=== PATIENT | female | born 1935 | race Asian ===

== ENCOUNTER 2016-07-10 14:15 | Outpatient (CLI) | payer OTHER ==
[~2016-07-10 14:15] MED LIST: ADULT ASA81 MG OR; APRODINE1 TAB OR; BYSTOLIC5 MG PO; CLOPIDOGREL75 MG PO; FA-8800 MCG OR; FURO40TA93 PO; GABA100C2 PO; GLIP10TA55 PO; HYDR25TA60 PO; INSU100I2 SC; METHO2.5 PO; MICRO-K10 MEQ OR; NITROGLYCER0.4 MG/HR SL; VYTORIN1 TA1 PO
== END 2016-07-10 19:55 | disposition home or self-care (01) ==
LOC: RAD 14:15
DX: M85.89 Other specified disorders of bone density and structure, multiple sites (principal)

== ENCOUNTER 2016-09-23 16:43 | Outpatient (CLI) | payer OTHER ==
[2016-09-23 17:15] LABS: POTASSIUM 4.2 mmol/L (3.6-5.2)
== END 2016-09-23 19:21 | disposition home or self-care (01) ==
LOC: LABW 16:43
PROVIDERS: Nurse Practitioner
DX: E11.9 Type 2 diabetes mellitus without complications (principal); N28.89 Other specified disorders of kidney and ureter
CPT/HCPCS: 36415; 80053; 82043; 82570; 83036

== ENCOUNTER 2016-10-09 17:17 | Outpatient (CLI) | payer OTHER ==
[2016-10-09 18:01] LABS: POTASSIUM 4.4 mmol/L (3.6-5.2)
== END 2016-10-09 20:28 | disposition home or self-care (01) ==
LOC: LABW 17:17
PROVIDERS: Internal Medicine Cardiovascular Disease
DX: I50.9 Heart failure, unspecified (principal)
CPT/HCPCS: 36415; 80048; 83880

== ENCOUNTER 2016-10-15 09:17 | Outpatient (CLI) | payer OTHER | END 2016-10-15 19:33 | disposition home or self-care (01) | LOC: US 09:17 | DX: E78.4 Other hyperlipidemia (principal); I10 Essential (primary) hypertension ==

== ENCOUNTER 2016-10-28 18:43 | Inpatient (IN) | payer OTHER ==
[~2016-10-28] VITALS: Ht 157.5 cm; Wt 79.0 kg
[2016-10-28 18:50] VITALS: BP 161/77; TEMP 99.4
[2016-10-28 21:41] LABS: PLATELET COUNT 155 K/uL (152-353)
[2016-10-29 02:42] VITALS: BP 172/82; TEMP 99.7; Ht 157.5 cm; Wt 79.0 kg
[2016-10-29] MEDS ORDERED: TRAM50TA PO (03:19)
[2016-10-29] MEDS ORDERED: MINOCYCLINE50 MG OR (03:20)
[2016-10-29] MEDS ORDERED: ALLO100T22 PO (03:21)
[2016-10-29] MEDS ORDERED: TIZA4TAB5 PO (03:22)
[2016-10-29] MEDS ORDERED: COLCHICINE0.6 MG PO (03:23)
[2016-10-29] MEDS ORDERED: SIMV40TA57 (03:25)
[2016-10-29 04:00] VITALS: BP 151/79; TEMP 99.6
[2016-10-29 08:00] VITALS: BP 136/67; TEMP 97.9
[2016-10-29 12:00] VITALS: BP 129/67; TEMP 98.6
[2016-10-29 16:00] VITALS: BP 154/76; TEMP 97.9
[2016-10-29 19:51] VITALS: BP 145/70; TEMP 100.1
[2016-10-30] VITALS: BP 113/61; TEMP 100
[2016-10-30 04:00] VITALS: BP 139/69; TEMP 99.5
[2016-10-30 05:11] LABS: POTASSIUM 3.8 mmol/L (3.6-5.2); SODIUM 133 mmol/L (136-145)
[2016-10-30 05:14] LABS: PLATELET COUNT 151 K/uL (152-353)
[2016-10-30 07:59] VITALS: BP 129/76; TEMP 99.4
[2016-10-30 12:26] VITALS: BP 124/63; TEMP 99.4
[2016-10-30 16:09] VITALS: BP 136/80; TEMP 99.5
[2016-10-30 20:00] VITALS: BP 138/67; TEMP 99.5
[2016-10-31 00:02] VITALS: BP 131/64; TEMP 99.5
[2016-10-31 04:00] VITALS: BP 143/71; TEMP 99.1
[2016-10-31 06:26] LABS: PLATELET COUNT 148 K/uL (152-353)
[2016-10-31 06:41] LABS: POTASSIUM 3.5 mmol/L (3.6-5.2); SODIUM 133 mmol/L (136-145)
[2016-10-31 08:15] VITALS: BP 146/75; TEMP 98.9
[2016-10-31 12:00] VITALS: BP 134/77; TEMP 99.4
[2016-10-31 16:00] VITALS: BP 168/84; TEMP 99.2
[2016-10-31 19:50] VITALS: BP 148/77; TEMP 98.8
[2016-11-01] VITALS (7 sets, daily range): BP systolic 126–164; BP diastolic 68–90; TEMP 98.5–100.5
[2016-11-01 05:43] LABS: PLATELET COUNT 154 K/uL (152-353)
[2016-11-01 05:50] LABS: POTASSIUM 3.4 mmol/L (3.6-5.2); SODIUM 132 mmol/L (136-145)
[2016-11-02 04:00] VITALS: BP 153/81; TEMP 99.8
[2016-11-02 05:33] LABS: PLATELET COUNT 176 K/uL (152-353)
[2016-11-02 05:37] LABS: POTASSIUM 3.9 mmol/L (3.6-5.2); SODIUM 132 mmol/L (136-145)
[2016-11-02 08:00] VITALS: BP 149/83; TEMP 99.3
[2016-11-02 11:35] VITALS: BP 155/86; TEMP 98.8
[2016-11-02 16:00] VITALS: BP 185/86; TEMP 99
[2016-11-02 20:12] VITALS: BP 127/64; TEMP 99.8
[2016-11-03 00:21] VITALS: BP 140/66; TEMP 100
[2016-11-03 04:00] VITALS: BP 139/77; TEMP 99
[2016-11-03 05:00] LABS: PLATELET COUNT 189 K/uL (152-353)
[2016-11-03 05:11] LABS: POTASSIUM 3.7 mmol/L (3.6-5.2); SODIUM 133 mmol/L (136-145)
[2016-11-03 08:00] VITALS: BP 146/71; TEMP 97.8
[2016-11-03 12:00] VITALS: BP 158/86; TEMP 99.2
[2016-11-03 16:00] VITALS: BP 172/94; TEMP 99
[2016-11-03 20:25] VITALS: BP 174/91; TEMP 99
[2016-11-04] VITALS: BP 164/89; TEMP 98
[2016-11-04 04:00] VITALS: BP 132/79; TEMP 97.8
[2016-11-04 08:00] VITALS: BP 147/81; TEMP 97.8
[2016-11-04 11:51] LABS: POTASSIUM 4.2 mmol/L (3.6-5.2); SODIUM 132 mmol/L (136-145)
[2016-11-04 12:00] VITALS: BP 156/86; TEMP 97.9
[2016-11-04 12:19] LABS: PLATELET COUNT 213 K/uL (152-353)
[2016-11-04 16:00] VITALS: BP 140/71; TEMP 98.9
[2016-11-04 20:00] VITALS: BP 148/82; TEMP 98.2
[2016-11-05 00:16] VITALS: BP 164/87; TEMP 98.4
[2016-11-05 04:00] VITALS: BP 151/80; TEMP 98.8
[2016-11-05 05:48] LABS: POTASSIUM 4.4 mmol/L (3.6-5.2)
[2016-11-05 05:50] LABS: PLATELET COUNT 238 K/uL (152-353)
[2016-11-05 08:02] VITALS: BP 176/85; TEMP 97.6
[2016-11-05 12:00] VITALS: BP 170/102; TEMP 97.6
[2016-11-05 16:00] VITALS: BP 160/79; TEMP 97.9
[2016-11-05 20:24] VITALS: BP 170/87; TEMP 99
[2016-11-06] VITALS: BP 138/75; TEMP 97.7
[2016-11-06 04:00] VITALS: BP 152/92; TEMP 98.9
[2016-11-06 05:20] LABS: PLATELET COUNT 274 K/uL (152-353)
[2016-11-06 08:20] VITALS: BP 157/76; TEMP 98
[2016-11-06 12:00] VITALS: BP 156/80; TEMP 97.6
[2016-11-06 16:00] VITALS: BP 156/80; TEMP 97.6
== END 2016-11-06 18:05 | disposition home or self-care (01) | DRG 640 ==
LOC: ED 18:43 → MED/SURG 10-29 00:39
PROVIDERS: Emergency Medicine; ADMIT Specialist
DX: E86.0 Dehydration (principal); J18.8 Other pneumonia, unspecified organism; B37.0 Candidal stomatitis; J02.0 Streptococcal pharyngitis; E11.9 Type 2 diabetes mellitus without complications; Z79.4 Long term (current) use of insulin; R79.89 Other specified abnormal findings of blood chemistry; R59.1 Generalized enlarged lymph nodes; M17.9 Osteoarthritis of knee, unspecified; M19.042 Primary osteoarthritis, left hand; I10 Essential (primary) hypertension; I50.9 Heart failure, unspecified
CPT/HCPCS: 36415; 36600; 80048; 80053; 81000; 82550; 82553; 82805; 82947; 82948; 83735; 83880; 84100; 84484; 84550; 85027; 85379; 85651; 86430; 87804; 87880; 93005; 94640; 94664; 94760; 96360; 96361; 96365; 96367; 96372; 96375; 99284; J1644; J1720; J1940; J2920; J3411; J3475; J3490; Q9963

== ENCOUNTER 2017-01-26 10:26 | Outpatient (CLI) | payer OTHER ==
[~2017-01-26 10:26] MED LIST changes: +ALLO100T22 PO; +COLCHICINE0.6 MG PO; +MINOCYCLINE50 MG OR; +SIMV40TA57; +TIZA4TAB5 PO; +TRAM50TA PO
== END 2017-01-26 19:07 | disposition home or self-care (01) ==
LOC: RAD 10:26
DX: M85.89 Other specified disorders of bone density and structure, multiple sites (principal); M81.0 Age-related osteoporosis without current pathological fracture

== ENCOUNTER 2017-02-21 20:45 | Outpatient (CLI) | payer OTHER ==
[2017-02-21 21:09] LABS: PLATELET COUNT 172 K/uL (152-353)
[2017-02-21 21:16] LABS: POTASSIUM 4.2 mmol/L (3.6-5.2)
== END 2017-02-21 21:45 | disposition home or self-care (01) ==
LOC: LABW 20:45
PROVIDERS: Internal Medicine Nephrology
DX: I12.9 Hypertensive chronic kidney disease with stage 1 through stage 4 chronic kidney disease, or unspecified chronic kidney disease (principal); N18.3 Chronic kidney disease, stage 3 (moderate); E11.65 Type 2 diabetes mellitus with hyperglycemia
CPT/HCPCS: 80048; 82043; 82570; 84155; 85027

== ENCOUNTER 2017-04-30 07:44 | Outpatient (CLI) | payer OTHER | END 2017-04-30 08:45 | disposition home or self-care (01) | LOC: RAD 07:44 | DX: M06.09 Rheumatoid arthritis without rheumatoid factor, multiple sites (principal); M17.0 Bilateral primary osteoarthritis of knee; M25.512 Pain in left shoulder ==

== ENCOUNTER 2017-05-21 20:03 | Outpatient (CLI) | payer OTHER ==
[2017-05-21 21:09] LABS: PLATELET COUNT 168 K/uL (152-353)
[2017-05-21 21:15] LABS: POTASSIUM 4.5 mmol/L (3.6-5.2)
== END 2017-05-21 21:05 | disposition home or self-care (01) ==
LOC: LABW 20:03
PROVIDERS: Internal Medicine Nephrology
DX: I12.9 Hypertensive chronic kidney disease with stage 1 through stage 4 chronic kidney disease, or unspecified chronic kidney disease (principal); N18.3 Chronic kidney disease, stage 3 (moderate)
CPT/HCPCS: 36415; 80048; 82570; 84155; 85027

== ENCOUNTER 2017-09-16 16:33 | Outpatient (CLI) | payer OTHER ==
[2017-09-16 16:57] LABS: PLATELET COUNT 188 K/uL (152-353)
[2017-09-16 17:18] LABS: POTASSIUM 4.4 mmol/L (3.6-5.2)
== END 2017-09-16 22:59 | disposition home or self-care (01) ==
LOC: LABW 16:33
PROVIDERS: Internal Medicine Nephrology
DX: I12.9 Hypertensive chronic kidney disease with stage 1 through stage 4 chronic kidney disease, or unspecified chronic kidney disease (principal); N18.3 Chronic kidney disease, stage 3 (moderate)
CPT/HCPCS: 36415; 80053; 80061; 82570; 84155; 85027

== ENCOUNTER 2017-10-24 19:41 | Outpatient (CLI) | payer OTHER | END 2017-10-24 21:22 | disposition home or self-care (01) | LOC: LAB 19:41 | DX: D47.2 Monoclonal gammopathy (principal) ==

== ENCOUNTER 2017-10-25 08:15 | Outpatient (CLI) | payer OTHER | END 2017-10-25 20:42 | disposition home or self-care (01) | LOC: RAD 08:15 | DX: D47.2 Monoclonal gammopathy (principal) ==

== ENCOUNTER 2018-01-16 15:14 | Outpatient (CLI) | payer OTHER | END 2018-01-16 19:43 | disposition home or self-care (01) | LOC: LABW 15:14 | DX: M06.09 Rheumatoid arthritis without rheumatoid factor, multiple sites (principal); R70.0 Elevated erythrocyte sedimentation rate; Z79.899 Other long term (current) drug therapy; Z51.81 Encounter for therapeutic drug level monitoring | CPT/HCPCS: 36415; 82784; 82785; 83883; 84155; 84156; 86039; 86235; 86335 ==

== ENCOUNTER 2018-03-16 17:40 | Outpatient (CLI) | payer OTHER ==
[2018-03-16 18:01] LABS: PLATELET COUNT 175 K/uL (152-353)
[2018-03-16 18:10] LABS: POTASSIUM 4.9 mmol/L (3.6-5.2)
== END 2018-03-16 19:46 | disposition home or self-care (01) ==
LOC: LABW 17:40
PROVIDERS: Internal Medicine Nephrology
DX: N18.3 Chronic kidney disease, stage 3 (moderate) (principal); I10 Essential (primary) hypertension; E11.65 Type 2 diabetes mellitus with hyperglycemia
CPT/HCPCS: 36415; 80053; 82570; 84155; 85027

== ENCOUNTER 2018-04-12 10:12 | Outpatient (CLI) | payer OTHER | END 2018-04-12 22:41 | disposition home or self-care (01) | LOC: MAMMO 10:12 | DX: Z12.31 Encounter for screening mammogram for malignant neoplasm of breast (principal) ==

== ENCOUNTER 2018-05-04 14:56 | Outpatient (CLI) | payer OTHER | END 2018-05-04 20:35 | disposition home or self-care (01) | LOC: RAD 14:56 | DX: Z00.00 Encounter for general adult medical examination without abnormal findings (principal); Z78.0 Asymptomatic menopausal state ==

== ENCOUNTER 2018-08-16 14:01 | Outpatient (CLI) | payer OTHER | END 2018-08-16 23:18 | disposition home or self-care (01) | LOC: LABW 14:01 → RAD 14:01 → LABW 23:18 | DX: M06.09 Rheumatoid arthritis without rheumatoid factor, multiple sites (principal) ==

== ENCOUNTER 2018-08-18 15:39 | Outpatient (CLI) | payer OTHER ==
[2018-08-18 16:05] LABS: PLATELET COUNT 166 K/uL (152-353)
[2018-08-18 16:22] LABS: POTASSIUM 4.7 mmol/L (3.6-5.2)
== END 2018-08-18 20:42 | disposition home or self-care (01) ==
LOC: LABW 15:39
PROVIDERS: Nurse Practitioner Family
DX: M06.09 Rheumatoid arthritis without rheumatoid factor, multiple sites (principal); M1A.9XX1 Chronic gout, unspecified, with tophus (tophi); M54.5 Low back pain; M79.7 Fibromyalgia; Z79.899 Other long term (current) drug therapy
CPT/HCPCS: 36415; 80053; 82784; 83883; 84165; 84550; 85027; 85651; 86140

== ENCOUNTER 2018-10-13 07:38 | Outpatient (CLI) | payer OTHER ==
[2018-10-13 08:17] LABS: POTASSIUM 4.4 mmol/L (3.6-5.2)
[2018-10-13 08:32] LABS: PLATELET COUNT 204 K/uL (152-353)
== END 2018-10-13 20:27 | disposition home or self-care (01) ==
LOC: LABW 07:38
PROVIDERS: Internal Medicine Nephrology
DX: I12.9 Hypertensive chronic kidney disease with stage 1 through stage 4 chronic kidney disease, or unspecified chronic kidney disease (principal); N18.3 Chronic kidney disease, stage 3 (moderate); E78.00 Pure hypercholesterolemia, unspecified; E11.65 Type 2 diabetes mellitus with hyperglycemia
CPT/HCPCS: 36415; 80053; 80061; 82570; 84155; 85027

== ENCOUNTER 2018-12-11 12:53 | Outpatient (CLI) | payer OTHER | END 2018-12-11 18:45 | disposition home or self-care (01) | LOC: RAD 12:53 | DX: M06.09 Rheumatoid arthritis without rheumatoid factor, multiple sites (principal) ==

== ENCOUNTER 2018-12-11 20:15 | Emergency (ER) | payer OTHER ==
[~2018-12-11] VITALS: Ht 157.5 cm; Wt 80.3 kg
[2018-12-12 00:29] VITALS: BP 165/80; TEMP 98.4
== END 2018-12-12 00:33 | disposition home or self-care (01) ==
LOC: ED 20:15
DX: M06.80 Other specified rheumatoid arthritis, unspecified site (principal); N39.0 Urinary tract infection, site not specified; M51.36 Other intervertebral disc degeneration, lumbar region; W18.39XA Other fall on same level, initial encounter; Y92.098 Other place in other non-institutional residence as the place of occurrence of the external cause
CPT/HCPCS: 81000; 87077; 87086; 87088; 87186; 99283

== ENCOUNTER 2019-02-23 08:36 | Outpatient (CLI) | payer OTHER ==
[2019-02-23 09:38] LABS: PLATELET COUNT 190 K/uL (152-353)
== END 2019-02-23 22:33 | disposition home or self-care (01) ==
LOC: LABW 08:36
PROVIDERS: Internal Medicine Nephrology
DX: I12.9 Hypertensive chronic kidney disease with stage 1 through stage 4 chronic kidney disease, or unspecified chronic kidney disease (principal); N18.3 Chronic kidney disease, stage 3 (moderate); E78.00 Pure hypercholesterolemia, unspecified; E11.65 Type 2 diabetes mellitus with hyperglycemia; N39.0 Urinary tract infection, site not specified
CPT/HCPCS: 36415; 80053; 82570; 84100; 84155; 85027

== ENCOUNTER 2019-03-02 14:36 | Outpatient (CLI) | payer OTHER | END 2019-03-02 23:26 | disposition home or self-care (01) | LOC: LAB 14:36 | DX: E11.22 Type 2 diabetes mellitus with diabetic chronic kidney disease (principal); N30.01 Acute cystitis with hematuria | CPT/HCPCS: 81000; 87088 ==

== ENCOUNTER 2019-04-14 10:37 | Outpatient (CLI) | payer OTHER | END 2019-04-14 21:29 | disposition home or self-care (01) | LOC: MAMMO 10:37 | DX: Z12.31 Encounter for screening mammogram for malignant neoplasm of breast (principal) ==

== ENCOUNTER 2019-06-05 14:39 | Outpatient (CLI) | payer OTHER ==
[2019-06-05 15:27] LABS: PLATELET COUNT 178 K/uL (152-353)
== END 2019-06-05 19:05 | disposition home or self-care (01) ==
LOC: LAB 14:39
PROVIDERS: Nurse Practitioner Family
DX: Z00.00 Encounter for general adult medical examination without abnormal findings (principal); I12.9 Hypertensive chronic kidney disease with stage 1 through stage 4 chronic kidney disease, or unspecified chronic kidney disease; E55.9 Vitamin D deficiency, unspecified; E11.9 Type 2 diabetes mellitus without complications; N18.3 Chronic kidney disease, stage 3 (moderate); Z79.4 Long term (current) use of insulin; I25.10 Atherosclerotic heart disease of native coronary artery without angina pectoris
CPT/HCPCS: 80053; 80061; 83036; 84439; 84443; 85027

== ENCOUNTER 2019-07-20 17:34 | Outpatient (CLI) | payer OTHER ==
[2019-07-20 19:04] LABS: PLATELET COUNT 181 K/uL (152-353)
[2019-07-20 19:23] LABS: POTASSIUM 5.2 mmol/L (3.6-5.2)
== END 2019-07-20 23:09 | disposition home or self-care (01) ==
LOC: LABW 17:34
PROVIDERS: Internal Medicine Nephrology
DX: I12.9 Hypertensive chronic kidney disease with stage 1 through stage 4 chronic kidney disease, or unspecified chronic kidney disease (principal); E11.65 Type 2 diabetes mellitus with hyperglycemia; E78.00 Pure hypercholesterolemia, unspecified; N18.3 Chronic kidney disease, stage 3 (moderate); N39.0 Urinary tract infection, site not specified
CPT/HCPCS: 36415; 80053; 82570; 84155; 85027

== ENCOUNTER 2019-11-24 15:30 | Outpatient (CLI) | payer OTHER ==
[2019-11-24 16:13] LABS: POTASSIUM 4.9 mmol/L (3.6-5.2)
[2019-11-24 16:20] LABS: PLATELET COUNT 151 K/uL (152-353)
== END 2019-11-24 19:24 | disposition home or self-care (01) ==
LOC: LABW 15:30
PROVIDERS: Internal Medicine Nephrology
DX: E78.00 Pure hypercholesterolemia, unspecified (principal); I10 Essential (primary) hypertension; N18.3 Chronic kidney disease, stage 3 (moderate); N39.0 Urinary tract infection, site not specified
CPT/HCPCS: 36415; 80053; 82570; 84100; 84155; 85027

== ENCOUNTER 2020-03-05 13:54 | Outpatient (CLI) | payer OTHER ==
[2020-03-05 14:56] LABS: PLATELET COUNT 173 K/uL (152-353)
[2020-03-05 15:47] LABS: POTASSIUM 4.7 mmol/L (3.6-5.2)
== END 2020-03-05 19:24 | disposition home or self-care (01) ==
LOC: LAB 13:54
PROVIDERS: Nurse Practitioner Family
DX: E13.620 Other specified diabetes mellitus with diabetic dermatitis (principal); E86.0 Dehydration; M19.90 Unspecified osteoarthritis, unspecified site; N18.3 Chronic kidney disease, stage 3 (moderate); I25.10 Atherosclerotic heart disease of native coronary artery without angina pectoris; E55.9 Vitamin D deficiency, unspecified; Z79.4 Long term (current) use of insulin; M21.969 Unspecified acquired deformity of unspecified lower leg; Z79.899 Other long term (current) drug therapy; E53.8 Deficiency of other specified B group vitamins; I12.9 Hypertensive chronic kidney disease with stage 1 through stage 4 chronic kidney disease, or unspecified chronic kidney disease
CPT/HCPCS: 80053; 80061; 82306; 82607; 83036; 84439; 84443; 84481; 85027

== ENCOUNTER 2020-06-04 11:51 | Outpatient (CLI) | payer OTHER ==
[2020-06-04 12:57] LABS: PLATELET COUNT 196 K/uL (152-353)
[2020-06-04 13:07] LABS: POTASSIUM 4.3 mmol/L (3.6-5.2)
== END 2020-06-04 19:59 | disposition home or self-care (01) ==
LOC: MAMMO 11:51
PROVIDERS: ATTEND Nurse Practitioner Family
DX: Z12.31 Encounter for screening mammogram for malignant neoplasm of breast (principal); E78.00 Pure hypercholesterolemia, unspecified; N18.30 Chronic kidney disease, stage 3 unspecified; N39.0 Urinary tract infection, site not specified; I12.9 Hypertensive chronic kidney disease with stage 1 through stage 4 chronic kidney disease, or unspecified chronic kidney disease
CPT/HCPCS: 36415; 80053; 81000; 82306; 82570; 83970; 84100; 84155; 85027

== ENCOUNTER 2020-07-11 14:39 | Outpatient (CLI) | payer OTHER ==
[2020-07-11 15:20] LABS: POTASSIUM 4.9 mmol/L (3.6-5.2)
[2020-07-11 15:37] LABS: PLATELET COUNT 185 K/uL (152-353)
== END 2020-07-11 21:42 | disposition home or self-care (01) ==
LOC: LAB 14:39
PROVIDERS: ATTEND Nurse Practitioner Family
DX: E11.9 Type 2 diabetes mellitus without complications (principal); M10.9 Gout, unspecified; E55.9 Vitamin D deficiency, unspecified; N18.30 Chronic kidney disease, stage 3 unspecified; I25.10 Atherosclerotic heart disease of native coronary artery without angina pectoris; Z79.899 Other long term (current) drug therapy; I12.9 Hypertensive chronic kidney disease with stage 1 through stage 4 chronic kidney disease, or unspecified chronic kidney disease
CPT/HCPCS: 80053; 80061; 82306; 83036; 84439; 84443; 84550; 85027

== ENCOUNTER 2020-07-17 16:39 | Outpatient (CLI) | payer OTHER | END 2020-07-17 23:59 | disposition home or self-care (01) | LOC: RAD 16:39 | PROVIDERS: ATTEND Nurse Practitioner Family | DX: M25.562 Pain in left knee (principal); R60.0 Localized edema ==

== ENCOUNTER 2020-08-31 15:23 | Emergency (ER) | payer OTHER ==
[~2020-08-31] VITALS: Ht 157.5 cm; Wt 78.0 kg
[2020-08-31 16:40] LABS: PLATELET COUNT 244 K/uL (152-353)
[2020-08-31 16:52] LABS: POTASSIUM 5.1 mmol/L (3.6-5.2)
[2020-08-31 20:33] VITALS: BP 154/61; TEMP 98.7
== END 2020-08-31 20:34 | disposition home or self-care (01) ==
LOC: ED 15:23
PROVIDERS: Family Medicine
DX: E86.0 Dehydration (principal); Z03.818 Encounter for observation for suspected exposure to other biological agents ruled out
CPT/HCPCS: 80053; 81000; 84550; 85027; 87502; 87635; 96360; 96375; 99284; J1885; U0003

== ENCOUNTER 2020-09-12 11:08 | Observation (INO) | payer OTHER ==
[~2020-09-12] VITALS: Ht 157.5 cm; Wt 76.7 kg
[2020-09-12 11:20] VITALS: BP 152/73; TEMP 98.8
[2020-09-12] MEDS ORDERED: LEVO0.0218 PO (11:21)
[2020-09-12] MEDS ORDERED: BYSTOLIC5 MG PO ×2 (11:23→15:59)
[2020-09-12] MEDS ORDERED: COZAAR100 MG PO (11:24)
[2020-09-12] MEDS ORDERED: LORATADINE10 M1 PO (11:26)
[2020-09-12 11:53] LABS: PLATELET COUNT 269 K/uL (152-353)
[2020-09-12 12:17] LABS: POTASSIUM 4.9 mmol/L (3.6-5.2); SODIUM 129 mmol/L (136-145)
--- NOTE | 2020-09-12 13:45 | NUR ---
Patient brought via stretcher to room 1116 and transferred to the bed with max 3 person assist. Patient is AOX4 and is able to make all of her needs known. Admission assessment completed. Patient has bilateral brown discoloration noted to lower extremities and both feet wagner to the lateral side. Patient states this is caused by her DM2 and arthritis. Patient reports no pain at this time however she reports weakness that has affected all her ADLS for the past month. Patient has a 22g to the right arm and is infusing NS at this time. Patient did give us her bag of home medications to be put in the computer. Medications taken to the nurses desk at this time. Bed is locked in low position, side rails up x2 ,call mendez within reach.
[2020-09-12 14:40] VITALS: BP 140/69; TEMP 98.6; Ht 157.5 cm; Wt 76.7 kg
[2020-09-12] MEDS ORDERED: ALLO100T22 PO (15:44)
[2020-09-12] MEDS ORDERED: KP FOLIC ACID1 MG PO (15:47)
[2020-09-12] MEDS ORDERED: NEURONTIN 100M100 MG PO ×2 (15:50→15:51)
[2020-09-12] MEDS ORDERED: POT CHLORIDE10 MEQ PO (15:57)
[2020-09-12] MEDS ORDERED: CIPR500T PO (16:00)
[2020-09-12] MEDS ORDERED: D350 MCG PO (16:01)
--- NOTE | 2020-09-12 16:51 | NUR ---
i spoke with pt in her room today to assess her discharge plannign needs, she stated that her daughter, Remedios Bucio [phone], lives with her and to please call her to make sure of what hoem services she has used in the past. I spoke with Remedios Bucio on the phone and she stated she could not remember the name of the home care services that pt had used in the past, so i let her know i would leave a referral list with the pt and when she visited she could look over the list with her mother, she verbalized understanding.
[2020-09-12 20:00] VITALS: BP 122/60; TEMP 97.4
--- NOTE | 2020-09-12 20:15 | NUR ---
AT PT'S BEDSIDE AT THIS TIME. PT IN A HIGH-FOWLERS POSITION AT THIS TIME AND IS ABLE TO APPROPRIATELY RESPOND TO TACTILE AND VERBAL STIMULI WELL. PT DENIES ANY PAIN OR DISCOMFORT AT THIS TIME.
--- NOTE | 2020-09-12 21:31 | NUR ---
PM MEDICATIONS GIVEN AT THIS TIME. FLUSHED IV SITE WITH 10 ML OF NS. NO EDEMA OR ERRYTHEMA VISUALIZED AT THIS TIME AND 22 G FLUSHED WELL. PT IN HIGH-FOWLERS POSITION AT THIS TIME. NS INFUSING @ 100 ML AN HOUR AND PT DENIES ANY PAIN OR DISCOMFORT AT THIS TIME, PT RESPONDS WELL TO VERBAL AND TACTILE STIMULI AND ABLE TO MAKE NEEDS KNOWN.
--- NOTE | 2020-09-12 21:50 | NUR ---
PT'S BLOOD GLUCOSE 318 WITH 10 UNITS OF LEVEMIR SCHEDULED PER PHYSICIAN ORDER.
[2020-09-13 00:26] VITALS: BP 139/70; TEMP 97.6
--- NOTE | 2020-09-13 02:50 | NUR ---
BLOOD GLUCOSE LEVEL RECHECKED AND WAS 198 MG/DL AT THIS TIME. PRESSURE APPLIED AFTERWARDS. BLANKET REQUESTED BY THE PATIENT. PROVIDED BLANKET.
[2020-09-13 04:22] VITALS: BP 147/77; TEMP 97.7
[2020-09-13 05:10] LABS: PLATELET COUNT 220 K/uL (152-353)
[2020-09-13 05:38] LABS: POTASSIUM 4.4 mmol/L (3.6-5.2)
[2020-09-13 08:00] VITALS: BP 180/84; TEMP 97.1
[2020-09-13] MEDS ORDERED: CIPR500T PO (10:31)
--- NOTE | 2020-09-13 11:00 | NUR ---
SPOKE TO [facility]GRID IN THERAPY CONCERNING EVAUL FOR OUT-PT THREAPY PER MD ORDERS. [facility] WILL SCREEN PT PRIOR TO DISCHARGE.
--- NOTE | 2020-09-13 13:00 | NUR ---
DISCHARGE INSTRUCTIONS EXPLAINED TO PT AND HER JENNIFERER IN ROOM AT BS. BOTH VERBALIZED UNDERSTANDING. EXPLAINED TO PT THAT INFORM WAS GIVEN AND REC BU UR FOR HOME THERAPY AND SOMEONE WOULD BE CALLING HER WITH APPT DATE AND TIME. BOTH VERBALIZED UNDERSTANDING.
--- NOTE | 2020-09-13 13:38 | NUR ---
PT LEFT VIA WC WITH DAUGHTER. NO DISTRESS NOTED.
== END 2020-09-13 13:00 | disposition home or self-care (01) ==
LOC: ED 11:08 → MED/SURG 13:00
PROVIDERS: ADMIT Hospitalist; ATTEND Internal Medicine
DX: E86.0 Dehydration (principal); N39.0 Urinary tract infection, site not specified; E87.1 Hypo-osmolality and hyponatremia; E03.8 Other specified hypothyroidism; I25.10 Atherosclerotic heart disease of native coronary artery without angina pectoris; M10.9 Gout, unspecified; E11.42 Type 2 diabetes mellitus with diabetic polyneuropathy; M06.8A Other specified rheumatoid arthritis, other specified site; R53.1 Weakness; I13.0 Hypertensive heart and chronic kidney disease with heart failure and stage 1 through stage 4 chronic kidney disease, or unspecified chronic kidney disease; I50.9 Heart failure, unspecified; N18.30 Chronic kidney disease, stage 3 unspecified; E11.22 Type 2 diabetes mellitus with diabetic chronic kidney disease
CPT/HCPCS: 36415; 80053; 82550; 82948; 83605; 83880; 84443; 84484; 85027; 85610; 85730; 86318; 87040; 87635; 93005; 96360; 96361; 96365; 96366; 96372; 96375; 99220; 99284; G0378; J1650; J1815; J1956; J3490; U0003

== ENCOUNTER 2020-09-20 10:10 | Outpatient (CLI) | payer OTHER ==
[~2020-09-20 10:10] MED LIST changes: +CIPR500T PO; +COZAAR100 MG PO; +D350 MCG PO; +KP FOLIC ACID1 MG PO; +LEVO0.0218 PO; +LORATADINE10 M1 PO; +NEURONTIN 100M100 MG PO; +POT CHLORIDE10 MEQ PO
[2020-09-20 10:55] LABS: PLATELET COUNT 269 K/uL (152-353)
[2020-09-20 11:22] LABS: POTASSIUM 4.6 mmol/L (3.6-5.2)
== END 2020-09-20 21:47 | disposition home or self-care (01) ==
LOC: LAB 10:10
PROVIDERS: ATTEND Internal Medicine Nephrology
DX: N39.0 Urinary tract infection, site not specified (principal); I50.9 Heart failure, unspecified; N18.30 Chronic kidney disease, stage 3 unspecified; E78.00 Pure hypercholesterolemia, unspecified; E11.69 Type 2 diabetes mellitus with other specified complication; E11.65 Type 2 diabetes mellitus with hyperglycemia; R53.1 Weakness; I11.0 Hypertensive heart disease with heart failure
CPT/HCPCS: 80053; 80061; 81000; 82306; 83036; 83970; 84100; 84155; 85027

== ENCOUNTER 2020-10-07 10:44 | Outpatient (CLI) | payer OTHER ==
[2020-10-07 12:03] LABS: POTASSIUM 4.5 mmol/L (3.6-5.2)
== END 2020-10-07 19:13 | disposition home or self-care (01) ==
LOC: LAB 10:44
PROVIDERS: ATTEND Internal Medicine Cardiovascular Disease
DX: N39.0 Urinary tract infection, site not specified (principal); I11.0 Hypertensive heart disease with heart failure; Z79.899 Other long term (current) drug therapy; R06.09 Other forms of dyspnea
CPT/HCPCS: 80048; 83880; 84443

== ENCOUNTER 2020-10-12 23:36 | Emergency (ER) | payer OTHER ==
[~2020-10-12] VITALS: Ht 157.5 cm; Wt 69.4 kg
[2020-10-13 01:10] VITALS: BP 103/56; TEMP 98.5
== END 2020-10-13 01:10 | disposition home or self-care (01) ==
LOC: ED 23:36
DX: B02.8 Zoster with other complications (principal); R21 Rash and other nonspecific skin eruption; Z79.899 Other long term (current) drug therapy
CPT/HCPCS: 96372; 99283; J1100; J1170; J2405

== ENCOUNTER 2020-10-29 14:39 | Outpatient (CLI) | payer OTHER | END 2020-10-29 19:53 | disposition home or self-care (01) | LOC: RESP 14:39 | PROVIDERS: ATTEND Internal Medicine Cardiovascular Disease | DX: I10 Essential (primary) hypertension (principal) ==

== ENCOUNTER 2020-12-02 16:57 | Outpatient (CLI) | payer OTHER | END 2020-12-02 21:53 | disposition home or self-care (01) | LOC: RAD 16:57 | PROVIDERS: ATTEND Nurse Practitioner Family | DX: M06.09 Rheumatoid arthritis without rheumatoid factor, multiple sites (principal); M15.1 Heberden's nodes (with arthropathy); M1A.09X0 Idiopathic chronic gout, multiple sites, without tophus (tophi); R26.89 Other abnormalities of gait and mobility ==

== ENCOUNTER 2020-12-04 13:04 | Outpatient (CLI) | payer OTHER | END 2020-12-04 23:04 | disposition home or self-care (01) | LOC: LAB 13:04 | PROVIDERS: ATTEND Nurse Practitioner Family | DX: I10 Essential (primary) hypertension (principal); E11.9 Type 2 diabetes mellitus without complications; E55.9 Vitamin D deficiency, unspecified; I25.10 Atherosclerotic heart disease of native coronary artery without angina pectoris | CPT/HCPCS: 82043; 82550; 82570; 83525; 84681 ==

== ENCOUNTER 2021-01-07 16:02 | Outpatient (CLI) | payer OTHER ==
[2021-01-07 16:33] LABS: PLATELET COUNT 275 K/uL (152-353)
[2021-01-07 16:51] LABS: POTASSIUM 4.6 mmol/L (3.6-5.2)
== END 2021-01-07 22:39 | disposition home or self-care (01) ==
LOC: LAB 16:02
PROVIDERS: ATTEND Internal Medicine Nephrology
DX: E78.00 Pure hypercholesterolemia, unspecified (principal); N18.30 Chronic kidney disease, stage 3 unspecified; N39.0 Urinary tract infection, site not specified; E11.69 Type 2 diabetes mellitus with other specified complication; E11.65 Type 2 diabetes mellitus with hyperglycemia; R53.1 Weakness; R32 Unspecified urinary incontinence; I12.9 Hypertensive chronic kidney disease with stage 1 through stage 4 chronic kidney disease, or unspecified chronic kidney disease
CPT/HCPCS: 80053; 81000; 82306; 82570; 83970; 84100; 84155; 85027

== ENCOUNTER 2021-01-21 08:16 | Outpatient (CLI) | payer OTHER ==
[~2021-01-21] VITALS: Ht 157.5 cm; Wt 69.4 kg
== END 2021-01-21 20:33 | disposition home or self-care (01) ==
LOC: DIABINF 08:16
PROVIDERS: ATTEND Internal Medicine Endocrinology, Diabetes & Metabolism
DX: E11.65 Type 2 diabetes mellitus with hyperglycemia (principal); E11.40 Type 2 diabetes mellitus with diabetic neuropathy, unspecified; I10 Essential (primary) hypertension; N18.30 Chronic kidney disease, stage 3 unspecified; I25.10 Atherosclerotic heart disease of native coronary artery without angina pectoris; E78.5 Hyperlipidemia, unspecified
CPT/HCPCS: 82948; 96365; 96366; 96521; J1815; J1817

== ENCOUNTER 2021-01-22 08:28 | Outpatient (CLI) | payer OTHER ==
[~2021-01-22] VITALS: Ht 157.5 cm; Wt 69.4 kg
== END 2021-01-22 23:27 | disposition home or self-care (01) ==
LOC: DIABINF 08:28
PROVIDERS: ATTEND Nurse Practitioner
DX: E11.65 Type 2 diabetes mellitus with hyperglycemia (principal); E11.40 Type 2 diabetes mellitus with diabetic neuropathy, unspecified; I10 Essential (primary) hypertension; N18.30 Chronic kidney disease, stage 3 unspecified; I25.10 Atherosclerotic heart disease of native coronary artery without angina pectoris; E78.5 Hyperlipidemia, unspecified
CPT/HCPCS: J1815

== ENCOUNTER 2021-01-28 08:16 | Outpatient (CLI) | payer OTHER ==
[~2021-01-28] VITALS: Ht 157.5 cm; Wt 69.4 kg
== END 2021-01-28 19:17 | disposition home or self-care (01) ==
LOC: DIABINF 08:16
PROVIDERS: ATTEND Nurse Practitioner
DX: E11.65 Type 2 diabetes mellitus with hyperglycemia (principal); E11.40 Type 2 diabetes mellitus with diabetic neuropathy, unspecified; I10 Essential (primary) hypertension; N18.30 Chronic kidney disease, stage 3 unspecified; I25.10 Atherosclerotic heart disease of native coronary artery without angina pectoris; E78.2 Mixed hyperlipidemia; E11.36 Type 2 diabetes mellitus with diabetic cataract; M19.90 Unspecified osteoarthritis, unspecified site; E11.621 Type 2 diabetes mellitus with foot ulcer
CPT/HCPCS: 82948; 96365; 96366; 96521; J1815; J1817

== ENCOUNTER 2021-01-29 08:22 | Outpatient (CLI) | payer OTHER ==
[~2021-01-29] VITALS: Ht 157.5 cm; Wt 69.4 kg
== END 2021-01-29 12:13 | disposition home or self-care (01) ==
LOC: DIABINF 08:22
PROVIDERS: ATTEND Nurse Practitioner
DX: E11.65 Type 2 diabetes mellitus with hyperglycemia (principal); E11.40 Type 2 diabetes mellitus with diabetic neuropathy, unspecified; I10 Essential (primary) hypertension; N18.30 Chronic kidney disease, stage 3 unspecified; I25.10 Atherosclerotic heart disease of native coronary artery without angina pectoris; E78.2 Mixed hyperlipidemia; E11.36 Type 2 diabetes mellitus with diabetic cataract; M19.90 Unspecified osteoarthritis, unspecified site; E11.621 Type 2 diabetes mellitus with foot ulcer
CPT/HCPCS: 82948; 96365; 96366; 96521; J1815; J1817

== ENCOUNTER 2021-02-04 08:36 | Outpatient (CLI) | payer OTHER ==
[~2021-02-04] VITALS: Ht 157.5 cm; Wt 69.4 kg
== END 2021-02-04 19:19 | disposition home or self-care (01) ==
LOC: DIABINF 08:36
PROVIDERS: ATTEND Nurse Practitioner
DX: E11.65 Type 2 diabetes mellitus with hyperglycemia (principal); E11.40 Type 2 diabetes mellitus with diabetic neuropathy, unspecified; I10 Essential (primary) hypertension; N18.30 Chronic kidney disease, stage 3 unspecified; I25.10 Atherosclerotic heart disease of native coronary artery without angina pectoris; K21.9 Gastro-esophageal reflux disease without esophagitis
CPT/HCPCS: 82948; 96365; 96366; 96521; J1817

== ENCOUNTER 2021-02-05 08:35 | Outpatient (CLI) | payer OTHER ==
[~2021-02-05] VITALS: Ht 157.5 cm; Wt 69.4 kg
== END 2021-02-05 18:55 | disposition home or self-care (01) ==
LOC: DIABINF 08:35
PROVIDERS: ATTEND Nurse Practitioner
DX: E11.9 Type 2 diabetes mellitus without complications (principal); E03.8 Other specified hypothyroidism; M10.9 Gout, unspecified; N18.9 Chronic kidney disease, unspecified; I10 Essential (primary) hypertension; E78.2 Mixed hyperlipidemia; K21.9 Gastro-esophageal reflux disease without esophagitis; S91.302D Unspecified open wound, left foot, subsequent encounter; X58.XXXD Exposure to other specified factors, subsequent encounter
CPT/HCPCS: 82948; 96365; 96366; 96521; J1815; J1817

== ENCOUNTER 2021-02-11 08:26 | Outpatient (CLI) | payer OTHER ==
[~2021-02-11] VITALS: Ht 157.5 cm; Wt 69.4 kg
== END 2021-02-11 21:19 | disposition home or self-care (01) ==
LOC: DIABINF 08:26
PROVIDERS: ATTEND Nurse Practitioner
DX: E11.9 Type 2 diabetes mellitus without complications (principal); E03.8 Other specified hypothyroidism; M10.9 Gout, unspecified; N18.9 Chronic kidney disease, unspecified; I10 Essential (primary) hypertension; E78.2 Mixed hyperlipidemia; K21.9 Gastro-esophageal reflux disease without esophagitis; S91.302D Unspecified open wound, left foot, subsequent encounter; X58.XXXD Exposure to other specified factors, subsequent encounter
CPT/HCPCS: 82948; 96365; 96366; 96521; J1815; J1817

== ENCOUNTER 2021-02-12 08:44 | Outpatient (CLI) | payer OTHER ==
[~2021-02-12] VITALS: Ht 157.5 cm; Wt 69.4 kg
== END 2021-02-12 21:08 | disposition home or self-care (01) ==
LOC: DIABINF 08:44
PROVIDERS: ATTEND Nurse Practitioner Family
DX: E11.9 Type 2 diabetes mellitus without complications (principal); E03.8 Other specified hypothyroidism; M10.9 Gout, unspecified; N18.9 Chronic kidney disease, unspecified; I10 Essential (primary) hypertension; E78.2 Mixed hyperlipidemia; K21.9 Gastro-esophageal reflux disease without esophagitis; S91.302D Unspecified open wound, left foot, subsequent encounter; X58.XXXD Exposure to other specified factors, subsequent encounter
CPT/HCPCS: 82948; 96365; 96366; 96521; J1815; J1817

== ENCOUNTER 2021-02-18 08:25 | Outpatient (CLI) | payer OTHER ==
[~2021-02-18] VITALS: Ht 157.5 cm; Wt 69.4 kg
== END 2021-02-18 21:43 | disposition home or self-care (01) ==
LOC: DIABINF 08:25
PROVIDERS: ATTEND Nurse Practitioner Family
DX: E11.9 Type 2 diabetes mellitus without complications (principal); E03.8 Other specified hypothyroidism; M10.9 Gout, unspecified; N18.9 Chronic kidney disease, unspecified; I10 Essential (primary) hypertension; E78.2 Mixed hyperlipidemia; K21.9 Gastro-esophageal reflux disease without esophagitis; S91.302D Unspecified open wound, left foot, subsequent encounter; X58.XXXD Exposure to other specified factors, subsequent encounter
CPT/HCPCS: 82948; 96365; 96366; 96521; J1815; J1817

== ENCOUNTER 2021-02-19 08:28 | Outpatient (CLI) | payer OTHER | END 2021-02-19 19:05 | disposition home or self-care (01) | LOC: DIABINF 08:28 | PROVIDERS: ATTEND Nurse Practitioner Family | DX: E11.9 Type 2 diabetes mellitus without complications (principal); E03.8 Other specified hypothyroidism; M10.9 Gout, unspecified; N18.9 Chronic kidney disease, unspecified; I10 Essential (primary) hypertension; E78.2 Mixed hyperlipidemia; K21.9 Gastro-esophageal reflux disease without esophagitis; S91.302D Unspecified open wound, left foot, subsequent encounter; X58.XXXD Exposure to other specified factors, subsequent encounter | CPT/HCPCS: 82948; 96365; 96366; 96521; J1817 ==

== ENCOUNTER 2021-02-23 14:54 | Emergency (ER) | payer OTHER ==
[~2021-02-23] VITALS: Ht 157.5 cm; Wt 69.4 kg
[2021-02-23 15:51] LABS: PLATELET COUNT 162 K/uL (152-353)
[2021-02-23 16:08] LABS: PARTIAL THROMBOPLASTIN TIME 24.7 SECONDS (24.5-33.6)
[2021-02-23 16:10] LABS: POTASSIUM 4.7 mmol/L (3.6-5.2); SODIUM 138 mmol/L (136-145)
[2021-02-23 18:13] VITALS: BP 119/66; TEMP 100
== END 2021-02-23 18:13 | disposition home or self-care (01) ==
LOC: ED 14:54
PROVIDERS: Hospitalist
DX: J06.9 Acute upper respiratory infection, unspecified (principal); R50.9 Fever, unspecified; R07.89 Other chest pain; Z20.822 Contact with and (suspected) exposure to COVID-19
CPT/HCPCS: 80053; 82550; 83880; 84484; 85027; 85610; 85730; 87635; 96365; 99284; J0456; U0003

== ENCOUNTER 2021-03-02 15:44 | Inpatient (IN) | payer OTHER ==
[2021-03-02] VITALS (9 sets, daily range): BP systolic 104–133; BP diastolic 54–73; TEMP 98.6–100.6
[~2021-03-02] VITALS: Ht 157.5 cm; Wt 69.4 kg
[2021-03-02 17:11] LABS: PLATELET COUNT 159 K/uL (152-353)
[2021-03-02 17:27] LABS: PARTIAL THROMBOPLASTIN TIME 25.1 SECONDS (24.5-33.6)
[2021-03-02 17:49] LABS: POTASSIUM 5.4 mmol/L (3.6-5.2); SODIUM 131 mmol/L (136-145)
[2021-03-03] VITALS (14 sets, daily range): BP systolic 116–155; BP diastolic 53–84; TEMP 97.2–98.7; Ht 157.5 cm; Wt 69.4 kg
[2021-03-03 06:35] LABS: PLATELET COUNT 154 K/uL (152-353)
[2021-03-03 06:42] LABS: POTASSIUM 5.9 mmol/L (3.6-5.2)
--- NOTE | 2021-03-03 20:20 | NUR ---
PATIENT BROUGHT VIA STRETCHER FROM THE ER. PATIENT TRANSFERRED X 2 PERSON MAX ASSIST. PATIENT IS ON 2 LPM VIA NC WITH SATS 91-92%. PATIENT IS RESTING QUIETLY WITH EYES CLOSED. WILL CONTINUE TO MONITOR.
[2021-03-03] MEDS ORDERED: ONDANSETRON4 M2 PO (21:44)
[2021-03-03] MEDS ORDERED: SIMV40TA57 (21:46)
[2021-03-03] MEDS ORDERED: ALLO100T22 PO (21:48)
[2021-03-03] MEDS ORDERED: COZAAR100 MG PO (21:49)
[2021-03-03] MEDS ORDERED: HYDR200T3 PO (21:51)
[2021-03-03] MEDS ORDERED: BYSTOLIC5 MG PO (21:53)
[2021-03-03] MEDS ORDERED: COLCHICINE0.6 MG PO (21:54)
[2021-03-03] MEDS ORDERED: NITROGLYCERIN0.4 MG SL (21:57)
[2021-03-03] MEDS ORDERED: GLIP10TA55 PO (21:58)
[2021-03-03] MEDS ORDERED: POTASSI XX (21:58)
--- NOTE | 2021-03-04 02:04 | NUR ---
LAE ENTRY PATIENT WAS ASSESED AND TRANSFERED TO ICU BED3. DR RODRIGUEZ WAS UPDATED ON PATIETNS CURRENT CONDITION. FAMILY WAS UPDATED ON PATIENT. OLD REPORTS STATED THAT PATIENT IN THE PAST WAS A LIMMITED DNR. FAMILY CHOSE TO REVOKE THIS. PATIENT STATUS IS NOW A FULL CODE. PATIENT IS RESTING QUIETLY. RT AT BEDSIDE, ADJUSTED NC TO 4LPM
[2021-03-04 03:39] LABS: PLATELET COUNT 196 K/uL (152-353)
[2021-03-04 04:22] LABS: POTASSIUM 4.2 mmol/L (3.6-5.2)
[2021-03-04 08:00] VITALS: TEMP 97.8
[2021-03-04 12:00] VITALS: TEMP 98.1
[2021-03-04 16:00] VITALS: TEMP 97.9
[2021-03-04] MEDS ORDERED: COLACE CLEAR50 MG PO (16:05)
--- NOTE | 2021-03-04 17:25 | NUR ---
EXTENSION PLACED ON PATIENT'S NC, ASSISTED PATIENT ONTO BSC AND INTO RECLINER. PATIENT IS WATCHING TV AND DENIES ANY PAIN, NEEDS OR C/O AT THIS TIME.
--- NOTE | 2021-03-04 21:10 | NUR ---
PATIEN WAS UP IN CHAIR. PATIENT WAS ASSESED AND MEDS WERE GIVEN. PRN SLIDING SCALE WAS GIVEN FOR A BS OF 308. PATIENT WAS HELPED BACK IN BED AND FAMILY UPDATED
[2021-03-05] VITALS (7 sets, daily range): BP systolic 105–114; BP diastolic 52–55; TEMP 97.8–98.1
[2021-03-05 05:40] LABS: PLATELET COUNT 195 K/uL (152-353)
--- NOTE | 2021-03-05 05:50 | NUR ---
PATIENTS CURRENT TEMP IS 97.2. PATIENT IS RESTING COMFORTABBLY WITH NON REBREATHER
[2021-03-05 06:01] LABS: POTASSIUM 4.4 mmol/L (3.6-5.2)
--- NOTE | 2021-03-05 13:05 | NUR ---
DR CORBETT SPOKE WITH FAMILY ON PHONE AND UPDATED PROVIDED
[2021-03-06] VITALS (15 sets, daily range): BP systolic 104–141; BP diastolic 52–84; TEMP 97.2–98.3
[2021-03-06 05:07] LABS: PLATELET COUNT 233 K/uL (152-353)
[2021-03-06 05:33] LABS: POTASSIUM 4.7 mmol/L (3.6-5.2)
--- NOTE | 2021-03-06 13:47 | NUR ---
CHANGED TO 15/50% VENTURI MASK
--- NOTE | 2021-03-06 20:35 | NUR ---
LAB DRAW PER NURSE FOR PTT
--- NOTE | 2021-03-06 21:40 | NUR ---
PT AWAKE WITH NO ACUTE DISTRESS NOTED, DENIES ANY NEEDS OR PROBLEMS AT THIS TIME. GAVE NIGHTLY MEDICATIONS INCLUDING PO MEDICATIONS WITH NO PROBLEMS, IV SITES INTACT, RESP RATE NONLABORED, O2 VIA NRB MASK, VITALS BEING MONITORED, WILL MONITOR CLOSELY, RAILS UP, BED IN LOW POSITION. ENCOURAGED TO CALL NEEDED.
--- NOTE | 2021-03-06 23:00 | NUR ---
RESTING WITH EYES CLOSED. NON REBREATHER IN PLACE
[2021-03-07] VITALS (9 sets, daily range): BP systolic 113–138; BP diastolic 56–75; TEMP 96.7–97.8
--- NOTE | 2021-03-07 01:50 | NUR ---
RESTING WITH EYES CLOSED, NO S/S OF PAIN OR DISTRESS NOTED, VITALS BEING MONITORED, WILL MONITOR CLOSELY, RAILS UP, BED IN LOW POSITION.
--- NOTE | 2021-03-07 03:28 | NUR ---
RESTING QUIETLY IN POSITION OF COMFORT WITH EYES CLOSED, NO S/S OF PAIN OR DISTRESS NOTED, RESP RATE NONLABORED 20, NRB IN USE WITH O2 SAT OF 100%, CANCER PROGRAM COORDINATOR IN USE WITH RATE OF 79 REGULAR, 22G IV LOCK INTACT TO R FA AND 20G IV LOCK TO L AC INTACT, WILL MONITOR CLOSELY, RAILS UP, BED IN LOW POSITION.
[2021-03-07 05:15] LABS: PLATELET COUNT 228 K/uL (152-353)
--- NOTE | 2021-03-07 07:00 | NUR ---
PT ASSISTED TO AND FROM BSC WITH WEAKNESS NOTED, PT COUGHING AND HAD SOME URINE INCONTINENCE. PT CLEANED UP, GOWN AND BED LINENS CHANGED. WILL MONITOR CLOSELY, RAILS UP, BED IN LOW POSITION, CALL LIGHT IN REACH.
--- NOTE | 2021-03-07 09:25 | NUR ---
ASSISTED TO BEDSIDE CHAIR, NC PLACED ON PATIENT @ 5LPM, PROVIDED PATIENT WITH BREAKFAST, PROVIDED PATIENT WITH INCENTIVE SPIROMETER AND PROVIDED INSTRUCTIONS ON USE. PT V/O UNDERSTANDING AND DEMONSTRATED PROPER USE. PT ABLE TO PULL UP TO 1000 WITHOUT DIFFICULTY. NAD NOTED WITH PATIENT AT THIS TIME.
--- NOTE | 2021-03-07 14:50 | NUR ---
PATIENT REMAINS IN RECLINER AND DENIES ANY NEEDS OR C/O AT THIS TIME. PATIENT HAS CONTINUED TO DEMONSTRATE PROPER USE OF IS DURING AM SHIFT. PATIENT REQUESTED TO REMAIN IN RECLINER, REQUEST GRANTED.
--- NOTE | 2021-03-07 16:45 | NUR ---
WHILE ASSISTING PATIENT FROM BSC TO BED, PT C/O OF CHEST PAIN. STAT EKG ORDERED AND RESULTS PROVIDED TO PHYSICIAN.
--- NOTE | 2021-03-07 21:49 | NUR ---
PATIENT WAS ASSESED AND BLOOD SUGER OBTAINED. PATIENTS BS 248 AND PATIENT WAS TREATED WITH PRN BT DOSE [id number]. PATIENTS TEMP WAS 96.7 AND PATIENT WAS GIVEN A BLANKET
--- NOTE | 2021-03-07 22:39 | NUR ---
PATIENT REQUESTED, "SOMETHING FOR COUGH". PATIENT WAS GIVEN PRN COUGH MEDICATION
[2021-03-08 03:00] VITALS: TEMP 97.6
--- NOTE | 2021-03-08 07:13 | NUR ---
PATIENT WAS HELPED TO THE BEDSIDE COMMODE. PATIENT CLEANED AND HELPPED BACK IN BED
--- NOTE | 2021-03-08 10:15 | NUR ---
PT HAS BEEN ENCOURAGED TO KEEP HER MASK ON AND TAKE DEEP BREATHS TO KEEP O2 SATS ABOVE 90. DAUGHTER UPDATED ON PT STATUS AT THIS TIME.
--- NOTE | 2021-03-08 11:34 | NUR ---
PT PLACED ON HF AT THIS TIME. SETTINGS 40L AT 100%.
--- NOTE | 2021-03-08 12:48 | NUR ---
DAUGHTER PHYLLIS UPDATED ABOUT BEING ON HIGH FLOW. HIGH FLOW EXPLAINED TO DAUGHTER AND SHE VERBALIZED UNDERSTANDING
--- NOTE | 2021-03-08 13:58 | NUR ---
DROPPED FIO2 TO 60% PER DR. CORBETT. TOLERATED WELL.
--- NOTE | 2021-03-08 18:55 | NUR ---
1130 PATIENT'S SPO2 DECREASED TO 80'S DURING MORNING AM SHIFT. PER ORDERS BY PHYSICIAN, PATIENT PLACED ON HIGH FLOW OXYGEN WITH SETTINGS OF 40L AND FIO2 100%. PATIENT TOLERATED WELL. 1340 PATIENT'S OXYGEN SATURATION REMAINED IN 90'S. PER INSTRUCTIONS OF PHYSICIAN, FIO2 DECREASED TO 60%. 1423 PATIENT'S BP IS 71/46, NEW ORDERS RECEIVED FOR NS 250ML BOLUS, NOTED AND CARRIED OUT. 1459 PATIENT'S BP 79/46, ADDITIONAL NEW ORDERS RECEIVED TO BOLUS NS 250ML, NOTED AND CARRIED OUT. 1620 DR. CORBETT REQUESTED THE FAMILY TO VISIT PATIENT AT BEDSIDE DUE TO PATIENT'S CHANGE IN CONDITION. PHYLLIS, PATIENT'S DAUGHTER, NOTIFIED OF THIS REQUEST AND REQUESTED HER BROTHER TO BE ABLE TO VISIT, REQUEST GRANTED BY DR. CORBETT. 1702 PT'S DAUGHTER AND SON AT BEDSIDE WITH PATIENT. PATIENT IS MORE ALERT, TALKATIVE, AND SMILING WITH CHILDREN AT BEDSIDE AND FAMILY VIA FACETIME.
[2021-03-08 20:00] VITALS: TEMP 99.1
--- NOTE | 2021-03-08 21:43 | NUR ---
PATIENT WAS HELPED TO THE BSC. PATIENT O2 SATURATION WENT TO 88 BUT PATIENT QUICKLY REBOUNDED TO 93%
--- NOTE | 2021-03-08 21:45 | NUR ---
PATIENT IS RESTING COMFORTABLY AND PATIENTS FAMILY HAS BEEN UPDATED BY THE NURSE
--- NOTE | 2021-03-08 21:45 | NUR ---
SHIFT ASSESSMENT COMPLETED. PATIENT ENCOURAGED TO USE INCENTIVE SPIROMETER. PATIENT ABLE TO DO 10 BREATHS AT 500 ML EACH TIME. PATIENT SPO2 REMAINED AT 92-93%. PATIENTS BLOOD SUGAR 109- ZERO COVERAGE.
--- NOTE | 2021-03-08 23:45 | NUR ---
INCREASED FIO2 TO 100% AND LITER FLOW TO 60 DUE TO SPO2 OF 88 TO 89% SPO2 95% AFTER CHANGE.
--- NOTE | 2021-03-08 23:47 | NUR ---
RT AT THE BEDSIDE. PATIENT NOTED WITH 02 SATS AT 88-89%. PATIENT INCREASED TO 100% FIO2 AND 60LPM. CURRENT SPO2 96%.
[2021-03-09] VITALS (7 sets, daily range): TEMP 98.7–100
--- NOTE | 2021-03-09 01:47 | NUR ---
CURRENT SPO2 98%. PATIENT IS RESTING COMFORTABLY IN NO ACUTE DISTRESS. BLOOD PRESSURE READING 112/64 WITH MAP 80.
[2021-03-09 06:48] LABS: PLATELET COUNT 273 K/uL (152-353)
[2021-03-09 07:06] LABS: POTASSIUM 3.7 mmol/L (3.6-5.2)
--- NOTE | 2021-03-09 08:30 | NUR ---
PT'S SON CALLED AND UPDATE GIVEN AT THIS TIMEL.
--- NOTE | 2021-03-09 10:40 | NUR ---
PT'S DAUGHTER CALLED AND UPDATE GIVEN AT THIS TIME.
--- NOTE | 2021-03-09 11:05 | NUR ---
PT V/O SHE WOULD LIKE DUMPLIMGS, [employer]ACH[employer]/COMBATANT DIVER OFFICER NOTIFIED DAUGHTER, HPYLLIS, OF SAME. MS. FERGUSON ADVISED PT'S NEICE WOULD COOK AND DELIVER DUMPLINGS TO HOSPITAL FOR PT, REPORTED SAME TO PT AND PT V/O UNDERSTANDING.
--- NOTE | 2021-03-09 15:35 | NUR ---
ASSISTED PT TO BEDSIDE COMMODE, PT BATHED AND URINE SOILED BRIEF CHANGED. ASSISTED PT WITH TRANSFERRING TO RECLINER AT BEDSIDE AND PROVIDED PATIENT WITH BOTTLE OF WATER. PT ABLE TO COUGH UP THREE (3) THICK YELLOW/WHITE SPUTUMS EACH APPROXIMATELY DIME SIZED. PT CONTINUES TO RECEIVE OXYGEN VIA HIGH FLOW WITH SETTINGS AT 60LPM, FIO2 90%, PT TOLERATING SAME WELL WITH SPO2 97% AT THIS TIME.
--- NOTE | 2021-03-09 16:02 | NUR ---
ADMINISTERED ROBITUSSIN TO PT AND INSTRUCTED PT TO DRINK REMAINING WATER IN BOTTLE TO LIQUIFY SECRETIONS, PT V/O UNDERSTANDING.
--- NOTE | 2021-03-09 17:59 | NUR ---
PT'S OTHER SON CALLED AND UPDATE GIVEN AT THIS TIME.
--- NOTE | 2021-03-09 20:43 | NUR ---
PATIENT NOTED SITTING UP IN THE BEDSIDE CHAIR. PATIENT IS RESTING WITH EYES CLOSED. CURRENT SPO2 95% ON HIGH FLOW.
[2021-03-10] VITALS: TEMP 100.7
--- NOTE | 2021-03-10 02:15 | NUR ---
PATIENT NOTED WITH INCREASED RR-31. PATIENT GIVEN 2 MG MORPHINE IV PUSH FOR INCREASED WORKFORCE OF BREATHING. PATIENT TOLERATED MEDICATION WELL.
--- NOTE | 2021-03-10 03:14 | NUR ---
PATIENT COUGHING. PATIENT ASSESSED AND NOTED WAS AXILLARY TEMP OF 100.7 ORAL. PATIENT GIVEN 650 MG OF TYLENOL PO AND ROBITUSSIN 10 MG PO PRN FOR COUGH. PATIENT HAS NON PRODUCTIVE COUGH AT THIS TIME.
--- NOTE | 2021-03-10 04:13 | NUR ---
LATE ENTRY: AT SHIFT CHANGE PATIENTS DAUGHTER AND SON WERE UPDATED ON HER CURRENT CONDITION
--- NOTE | 2021-03-10 04:46 | NUR ---
PATIENT NOTED WITH DECREASED BLOOD PRESSURE 85/39. PATIENT GIVEN A 250 ML BOLUS PER PRN ORDERS.
[2021-03-10 08:04] LABS: PLATELET COUNT 229 K/uL (152-353)
[2021-03-10 08:14] LABS: POTASSIUM 3.9 mmol/L (3.6-5.2)
--- NOTE | 2021-03-10 12:55 | NUR ---
PT NOTED TO BE SOB WHEN TRYING TO TALK. O2 SATS NOTED TO DROP TO 90% FROM 96%. DR. CHEN NOTIFIED. DR. CHEN STATES "LET RESPIRATORY CHECK HER OUT" NO FURTHER ORDERS AT THIS TIME. ARLYN RT AT PT'S BEDSIDE.
--- NOTE | 2021-03-10 12:57 | NUR ---
PT NOTED TO DOZE BACK OFF AT THIS TIME. SATS BACK UP TO 96%. NO CHANGES MADE BY RT AT THIS TIME.
[2021-03-10 20:00] VITALS: TEMP 100.1
--- NOTE | 2021-03-10 23:35 | NUR ---
PATIENT NOTED WITH AXILLARY TEMP OF 100.1. PATIENT GIVEN TYLENOL 1000MG IV PIGGY BACK. WILL REASSESS FOR DECREASE IN TEMP.
[2021-03-11 00:01] VITALS: TEMP 99.2
--- NOTE | 2021-03-11 00:35 | NUR ---
RECHECKED TEMP ORALLY AND IT DECREASED TO 99.2. WILL CONTINUE TO MONITOR.
--- NOTE | 2021-03-11 03:24 | NUR ---
PATIENT NOTED REMOVING HIGH FLOW NASAL CANNULA AND BECOMING SHORT OF BREATH WITH ACCESSORY MUSCLE USE. O2 SATS READING 79-84%. RR-32. PATIENT HIGH FLOW NASAL CANNULA PLACED BACK WELL NON REBREATHER. PATIENT CUED TO TAKE SLOW DEEP BREATHS AND OUT THROUGH PURSED LIPS. PATIENT DID FOLLOW COMMANDS.
[2021-03-11 04:00] VITALS: TEMP 99.1
--- NOTE | 2021-03-11 05:19 | NUR ---
16F.MOCK CATHETER INSERTED USING STERILE TECHNIQUE. APPROX. 400 ML OF DARK URINE NOTED ON RETURN. PATIENT TOLERATED WELL.
[2021-03-11 05:43] LABS: PLATELET COUNT 204 K/uL (152-353)
[2021-03-11 05:56] LABS: POTASSIUM 4.4 mmol/L (3.6-5.2)
--- NOTE | 2021-03-11 06:11 | NUR ---
PATIENT NOTED WITH LABORED BREATHING. ASSESSED PATIENT AND COARSE CRACKLES NOTED. PATIENT WEAK. BLOOD PRESSURE READING 94/63. ER PHYSICIAN CALLED AND NEW ORDER GIVEN FOR LASIX 20 MG IV PUSH AND NS 250 ML X1 BOLUS. BOLUS STARTED AT THIS TIME.
--- NOTE | 2021-03-11 09:20 | NUR ---
PT O2 SATS 88-91% WITH HIGH FLOW ON AT 60LPM 100% FIO2 AND NON-REBREATHER ON. HR 121 BP 100/[address] CHEN STATES " HER Kidney FUNCTION HAS WORSENED, I DC'D THE LASIX" UPDATE DR. CHEN ON PT'S STATUS TRHOUGHOUT THE NIGHT. NO FURTHER ORDERS GIVEN AT THIS TIME.
--- NOTE | 2021-03-11 09:45 | NUR ---
SPOKE WITH JOSLYN DAILEY. CANDELARIO, UR SUPERVISOR RUBBER COVERING. UPDATE GIVEN ON PT. CANDELARIO JORGENSEN TO CALL PT'S FAMILY WITH UPDATE.
--- NOTE | 2021-03-11 09:52 | NUR ---
PT'S O2 SATS NOTED TO BE 81%. HR 120. PT STATES "CAN SOMEONE HELP ME GET MY AIR" ASSISTED PT WITH PLACING NR BACK ON. PT RR NOTED TO BE 31 LABORED. SUE JARAMILLO, RN AND MYSELF AT BEDSIDE. 22G IV STARTED TO LEFT FOREARM AT THIS TIME MORPHINE 2MG IV PUSH GIVEN PER MD ORDERS FOR RESP DISTRESS. DR. CHEN NOTIFIED OF PT'S CHANGE IN STATUS. REC'D ORDERS TO GIVE 2ND DOSE OF MORPHINE 2MG IF NO IMPROVEMENT WITHING 5 MINUTES OF FIRST DOSE.
--- NOTE | 2021-03-11 10:00 | NUR ---
REC'D ORDERS TO TRANSFER PT TO MS ROOM 1107 FOR CARE AND COMFORT PER JOSLYN IN UR.
--- NOTE | 2021-03-11 10:03 | NUR ---
2ND DOSE OF MORPHINE 2MG IV IN. PT HR NOTED TO BE 125 RR 35 O2 SATS REMAINS AT 87% PT'S BREATHING REMAINS LABORED. PT'S 22G TO RT FA DC'D AT THIS TIME 22G TO LAC DC'D AT THIS TIME DUE TO UNABLE TO FLUSH.
--- NOTE | 2021-03-11 10:20 | NUR ---
RESP NOTIFIED OF NER ORDERS TO TRANSFER PT TO MS. PT DC'D FROM HIGH FLOW AND TRANSFERED TO MS VIA BED ON NR AT 15L. PT REMAINED LABORED AND TACHYPENIC WITH RESPS AROUND 38. PT VERY LETHARGIC. FAMILY WAS NOTIFIED PRIOR TO TRANSFER PER JOSLYN IN UR AND ARE ON THE WAY TO BE WITH PT. REPORT GIVEN TO TANO PALOMINO.
--- NOTE | 2021-03-11 10:22 | NUR ---
at 0930am i rec call from ZULLY Jett stating that pt is not doing well and to please reach out to family and if approved by Dr. Montesinos to arrange compassionate care visit as pt has had a change in status. Per Dr. Montesinos' order pt may have compassionate visit based on her critical status and to please update family. Per Dr. Montesinos, she "has made a turn for the worse, and is not as good today as she was on Wednesday". I called her daughter Remedios Bucio to update her on pts status. She stated, "we do not want her to suffer". When i asked her about any other siblings, she stated "its just me-her daughter, and my brother, Isiah Deras, and he is at work in [place]. When questioned if Mrs. Deras made her needs known before this hospitalization regarding what care she would want, her daughter, Remedios Bucio, stated, "Yes, she did not want to be resusciatated and she did not want to be ont he ventilator". I asked Remedios Bucio, "so Mrs. Deras did not want to be resuscitated ih her heart stopped beating?," and she stated "that is right", and if MRs. Deras stopped breathing, she did not want to be intubated or put on the ventilator?, and she stated "that is right". Remedios Bucio stated, "we just want her to be comfortable". I informed her that per Dr. Montesinos we could provide comfort measures only if that is what the pt would have wanted and if thats what the family wants at this time, and Remedios stated "yes, please just make her comfortable, i know yall have done all yall could do to help her". Dr. Montesinos updated, nurse Israel Hauser updated.
--- NOTE | 2021-03-11 11:25 | NUR ---
NOTIFIED DR. CHEN OF PT NO HAVING A HEART BEAT OR RESPIRATIONS 1136 DR. CHEN IN RM AND PRONOUNCED PT AT THIS TIME 1215 REMOVED MOCK, IV AND ELECTRODE STICKERS FROM PT 1230 [facility] HERE TO RECIEIVE PT, BELONGINGS GIVEN TO DAUGHTER PHYLLIS MEADOWS
== END 2021-03-11 11:36 | disposition expired | DRG 177 ==
LOC: ED 15:44 → ICU 18:15 → MED/SURG 03-11 10:30
PROVIDERS: Internal Medicine; Internal Medicine Endocrinology, Diabetes & Metabolism; ADMIT Hospitalist; ATTEND Internal Medicine
DX: U07.1 COVID-19 (principal); J12.82 Pneumonia due to coronavirus disease 2019; J96.01 Acute respiratory failure with hypoxia; N17.8 Other acute kidney failure; E87.1 Hypo-osmolality and hyponatremia; I13.0 Hypertensive heart and chronic kidney disease with heart failure and stage 1 through stage 4 chronic kidney disease, or unspecified chronic kidney disease; E03.8 Other specified hypothyroidism; E11.65 Type 2 diabetes mellitus with hyperglycemia; I25.10 Atherosclerotic heart disease of native coronary artery without angina pectoris; E78.49 Other hyperlipidemia; I25.2 Old myocardial infarction; E11.42 Type 2 diabetes mellitus with diabetic polyneuropathy; E11.22 Type 2 diabetes mellitus with diabetic chronic kidney disease; N18.30 Chronic kidney disease, stage 3 unspecified; M06.8A Other specified rheumatoid arthritis, other specified site
CPT/HCPCS: 36415; 36600; 80048; 80053; 81000; 82550; 82805; 82948; 83605; 83880; 84443; 84484; 85027; 85379; 85610; 85730; 87040; 87077; 87185; 87186; 87205; 87635; 93005; 94760; 96365; 96372; 96375; 99285; J0132; J0456; J1100; J1650; J1815; J1940; J1956; J2185; J2270; J2405; J3490; U0003